=== PATIENT | male | born 1985 | race Caucasian/White ===

== ENCOUNTER 2021-11-10 03:49 | Emergency (ER) | payer MEDICAID ==
--- NOTE | 2021-11-10 03:52 | ED Physician Documentation ---
PD HPI CHEST PAIN - Stated complaint Stated Complaint: CHEST PRESSURE, L ARM NUMB, WEAKNESS - History obtained from History obtained from: Patient - History of Present Illness Timing - onset: Yesterday (11/09/21) Timing - onset during: Rest Timing - details: Abrupt onset, Waxing and waning Pain level now: 2 Quality: Pain Location: Left chest Radiation: Left upper extremity Improved by: Nothing Worsened by: Other (no exacerbating factors) Associated symptoms: Shortness of air. No: Diaphoresis, Nausea, Vomiting, Feeling faint / dizzy, General Weakness, Palpitations, Cough Recently seen: Not recently seen - Additional information Additional information: c/o left-sided chest pain since yesterday afternoon without apparent inciting event nor exacerbating or ameliorating factors. He also notes LUE pain and numbness but he says that has been recurrent and ongoing for past two months. He also notes dyspnea since yesterday. Denies cough, denies fever. He is not COVID vaccinated. He admits to methamphetamine use with most recent use a few hours [employer] Review of Systems Constitutional: denies: Fever, Chills, Sweats Cardiac: reports: Chest pain / pressure. denies: Palpitations, Pedal edema, Calf pain Respiratory: reports: Dyspnea. denies: Cough, Hemoptysis, Wheezing GI: reports: Reviewed and negative Musculoskeletal: reports: Reviewed and negative Neurologic: reports: Reviewed and negative PD PAST MEDICAL HISTORY - Past Medical History Past Medical History: No - Present Medications Home Medications: Ambulatory Orders Medication Instructions Recorded Confirmed No Known Home Medications 11/10/21 11/10/21 - Allergies Allergies/Adverse Reactions: Allergies Allergy/AdvReac Type Severity Reaction Status Date / Time No Known Drug Allergies Allergy Verified 11/10/21 04:02 - Social History Substance Use and Type: Meth PD ED PE NORMAL - Vitals Vital signs reviewed: Yes - General General: Alert and oriented X 3, No acute distress, Well developed/nourished - HEENT HEENT: Other (tacky/pasty mucous membranes) - Cardiac Cardiac: RRR, No murmur, No gallop, No rub - Respiratory Respiratory: No respiratory distress, Clear bilaterally - Abdomen Abdomen: Soft, Non tender - Derm Derm: Normal color, Warm and dry - Extremities Extremities: No edema Results - Vitals Vitals: Vital Signs - 24 hr 11/10/21 11/10/21 11/10/21 03:56 04:36 05:46 Temperature 36.5 C Heart Rate 91 76 76 Respiratory 15 19 14 Rate Blood Pressure 184/117 H 157/88 H 144/84 H O2 Saturation 100 96 98 Oxygen O2 Source Room air - EKG (time done) No standard instances Rate: Rate (enter#) (87) Rhythm: NSR [place]: Normal Intervals: Normal [place] QRS: Normal Ischemia: Normal ST segments, T wave inversion (isolated (lead III)) - Labs Labs: Laboratory Tests 11/10/21 11/10/21 11/10/21 03:15 03:59 03:59 WBC 9.4 RBC 4.92 Hgb 15.7 Hct 45.8 MCV 93.1 MCH 31.9 H MCHC 34.3 RDW 12.6 Plt Count 246 MPV 10.8 Neut # (Auto) 6.5 Lymph # (Auto) 1.9 Adams # (Auto) 0.9 Eos # (Auto) 0.1 Baso # (Auto) 0.0 Absolute Nucleated RBC 0.00 Nucleated RBC % 0.0 Sodium 138 Potassium 3.3 L Chloride 99 L Carbon Dioxide 25 Anion Gap 14.0 H BUN 20 Creatinine 1.0 Estimated GFR (MDRD) 85 L Glucose 104 H Calcium 9.3 Total Bilirubin 0.8 AST 37 ALT 27 Alkaline Phosphatase 88 Troponin I High Sens Total Protein 7.9 Albumin 5.0 Globulin 2.9 Albumin/Globulin Ratio 1.7 Lipase 32 Nasal Adenovirus (PCR) NOT DETECTED Nasal B. parapertussis DNA (PCR) NOT DETECTED Nasal Coronavir 229E PCR NOT DETECTED Nasal Coronavir HKU1 PCR NOT DETECTED Nasal Coronavir NL63 PCR NOT DETECTED Nasal Coronavir OC43 PCR NOT DETECTED Nasal Enterovir/Rhinovir PCR NOT DETECTED Nasal Influenza B PCR NOT DETECTED Nasal Influenza A PCR NOT DETECTED Nasal Parainfluen 1 PCR NOT DETECTED Nasal Parainfluen 2 PCR NOT DETECTED Nasal Parainfluen 3 PCR NOT DETECTED Nasal Parainfluen 4 PCR NOT DETECTED Nasal RSV (PCR) NOT DETECTED Nasal B.pertussis DNA PCR NOT DETECTED Nasal C.pneumoniae (PCR) NOT DETECTED Harish Human Metapneumo PCR NOT DETECTED Nasal M.pneumoniae (PCR) NOT DETECTED Nasal SARS-CoV-2 (PCR) NOT DETECTED 11/10/21 03:59 WBC RBC Hgb Hct MCV MCH MCHC RDW Plt Count MPV Neut # (Auto) Lymph # (Auto) Adams # (Auto) Eos # (Auto) Baso # (Auto) Absolute Nucleated RBC Nucleated RBC % Sodium Potassium Chloride Carbon Dioxide Anion Gap BUN Creatinine Estimated GFR (MDRD) Glucose Calcium Total Bilirubin AST ALT Alkaline Phosphatase Troponin I High Sens 4.6 Total Protein Albumin Globulin Albumin/Globulin Ratio Lipase Nasal Adenovirus (PCR) Nasal B. parapertussis DNA (PCR) Nasal Coronavir 229E PCR Nasal Coronavir HKU1 PCR Nasal Coronavir NL63 PCR Nasal Coronavir OC43 PCR Nasal Enterovir/Rhinovir PCR Nasal Influenza B PCR Nasal Influenza A PCR Nasal Parainfluen 1 PCR Nasal Parainfluen 2 PCR Nasal Parainfluen 3 PCR Nasal Parainfluen 4 PCR Nasal RSV (PCR) Nasal B.pertussis DNA PCR Nasal C.pneumoniae (PCR) Harish Human Metapneumo PCR Nasal M.pneumoniae (PCR) Nasal SARS-CoV-2 (PCR) - Rads (name of study) chest xray Radiology: Prelim report reviewed, See rad report PD MEDICAL DECISION MAKING - ED course Complexity details: reviewed results, re-evaluated patient, considered differential, d/w patient ED course: c/o left chest pain with dyspnea since yesterday afternoon. Questionable whether this is related to LUE pain and numbness, as that has been an ongoing symptom for at least 2 months. He has no significant EKG findings, nor concerning findings on CXR or blood tests (including high sensitivity troponin). Results d/w patient, I recommended return if worse but emphasized the importance of establishing with a local outpatient primary care provider for reevaluation as well as reevaluation of the high blood pressure readings he had early in ED stay (improved without intervention later in ED stay). Departure - Departure Disposition: 01 Home, Self Care Clinical Impression: Chest pain, Hypokalemia Condition: Good Instructions: ED Chest Pain Atypical Unkn Cause, ED Potassium Deficiency Follow-Up: New Manuel MD [Credentialed Staff Provider] - Comments: Your test results tonight have no concerning findings (mildly low potassium is an incidental finding). You should follow up with an outpatient medical practitioner, as further tests might be needed even if you do not have further symptoms. Discharge Date/Time: 11/10/21 05:58
[2021-11-10 04:26] LABS: BASOPHILS % (AUTO) 0.4 %; EOSINOPHILS # (AUTO) 0.1 10^3/uL (0.0-0.7); EOSINOPHILS % (AUTO) 1.3 %; HCT - HEMATOCRIT 45.8 % (42.0-52.0); HGB - HEMOGLOBIN 15.7 g/dL (14.0-18.0); LYMPHOCYTES # (AUTO) 1.9 10^3/uL (1.5-3.5); LYMPHOCYTES % (AUTO) 19.8 %; MEAN CORPUSCULAR HEMOGLOBIN 31.9 pg (27.0-31.0); MEAN CORPUSCULAR HGB CONC 34.3 g/dL (32.0-36.0); MEAN CORPUSCULAR VOLUME 93.1 fL (80.0-94.0); MEAN PLATELET VOLUME 10.8 fL (7.4-11.4); MONOCYTES # (AUTO) 0.9 10^3/uL (0.0-1.0); MONOCYTES % (AUTO) 9.1 %; NEUTROPHILS # (AUTO) 6.5 10^3/uL (1.5-6.6); NEUTROPHILS % (AUTO) 69.2 %; PLT - PLATELET COUNT 246 10^3/uL (130-450); RED BLOOD COUNT 4.92 10^6/uL (4.70-6.10); RED CELL DISTRIBUTION WIDTH 12.6 % (12.0-15.0); WHITE BLOOD COUNT 9.4 x10^3/uL (4.8-10.8)
[2021-11-10 04:43] LABS: ALBUMIN/GLOBULIN RATIO 1.7 (1.0-2.2); BILIRUBIN,TOTAL 0.8 mg/dL (0.2-1.0); CALCIUM 9.3 mg/dL (8.5-10.3); POTASSIUM 3.3 mmol/L (3.5-5.0); TOTAL PROTEIN 7.9 g/dL (6.7-8.2)
[2021-11-10 05:15] LABS: CORONAVIRUS 229E-RESP PCR NOT DETECTED; CORONAVIRUS HKU1-RESP PCR NOT DETECTED; CORONAVIRUS NL63-RESP PCR NOT DETECTED; CORONAVIRUS OC43-RESP PCR NOT DETECTED; HUMAN METAPNEUMOVIRUS NOT DETECTED; INFLUENZA A- RESP PCR PANEL NOT DETECTED; RHINOVIRUS/ENTEROVIRUS NOT DETECTED; SARS-CoV-2 -RESP PCR PANEL NOT DETECTED
[2021-11-10 05:16] LABS: B. PARAPERTUSSIS- RESP PCR PAN NOT DETECTED; B. PERTUSSIS- RESP PCR PANEL NOT DETECTED; C. PNEUMONIAE- RESP PCR PANEL NOT DETECTED; INFLUENZA B - RESP PCR PANEL NOT DETECTED; M. PNEUMONIAE- RESP PCR PANEL NOT DETECTED; PARAINFLUENZA VIRUS 1 NOT DETECTED; PARAINFLUENZA VIRUS 2 NOT DETECTED; PARAINFLUENZA VIRUS 3 NOT DETECTED; PARAINFLUENZA VIRUS 4 NOT DETECTED; RSV- RESP PCR PANEL NOT DETECTED
[2021-11-10] MEDS ORDERED: POTASSIUM CHLORIDE 20 MEQ TABLET PO STA (05:38)
[2021-11-10 05:47] VITALS: BP 144/84
--- NOTE | 2021-11-10 07:41 | XRAY Report ---
PROCEDURE: Chest 1 View X-Ray INDICATIONS: Chest pain TECHNIQUE: One view of the chest was acquired. COMPARISON: None FINDINGS: Surgical changes and devices: None. Lungs and pleura: No pleural effusions or pneumothorax. Lungs are clear. Mediastinum: Mediastinal contours appear normal. Heart size is normal. Bones and chest wall: No suspicious bony lesions. Overlying soft tissues appear unremarkable. IMPRESSION: No acute cardiopulmonary disease process. Reviewed by: Jessy Ledesma MD, PhD on 11/10/2021 7:40 AM [facility] Approved by: Jessy Ledesma MD, PhD on 11/10/2021 7:40 AM [facility] Station ID: [id number]
== END 2021-11-10 05:58 | disposition home or self-care (01) ==
LOC: ED 03:49
DX: R07.9 Chest pain, unspecified (principal); E87.6 Hypokalemia; R20.0 Anesthesia of skin; Z20.822 Contact with and (suspected) exposure to COVID-19
CPT/HCPCS: 0202U; 36415; 71045; 80053; 83690; 84484; 85025; 93005; 99283; 99284; A9270

== ENCOUNTER 2022-04-06 08:00 | Outpatient (CLI) | payer MEDICAID ==
--- NOTE | 2022-04-07 12:44 | XRAY Report ---
PROCEDURE: Finger(s) RT INDICATIONS: R RING FINGER PX TECHNIQUE: AP hand, 3 views of the 4 finger(s) acquired. COMPARISON: None FINDINGS: Bones: No fractures or dislocations. No suspicious bony lesions. Soft tissues: No suspicious soft tissue calcifications. IMPRESSION: No visualized acute fracture or dislocation. However, occult injury cannot be excluded. Recommend evens rt interval imaging follow-up in 7-10 days as clinically indicated for additional evaluation. Reviewed by: Meagan Duran MD on 04/07/2022 12:43 PM PDT Approved by: Meagan Duran MD on 04/07/2022 12:43 PM PDT Station ID: [id number]
== END 2022-04-06 23:59 | disposition home or self-care (01) ==
LOC: DI.N 08:00
PROVIDERS: ATTEND Family Medicine
DX: M79.644 Pain in right finger(s) (principal)

== ENCOUNTER 2022-05-04 08:00 | Outpatient (CLI) | payer MEDICAID ==
--- NOTE | 2022-05-04 17:37 | XRAY Report ---
PROCEDURE: Hand 3 View BILAT INDICATIONS: BILAT HAND PAIN TECHNIQUE: 3 views of the hand(s) acquired. COMPARISON: None FINDINGS: Bones: No fractures or dislocations. No suspicious bony lesions. Soft tissues: No suspicious soft tissue calcifications. IMPRESSION: Unremarkable bilateral hand radiographs Reviewed by: Brent Cummings MD on 05/04/2022 4:35 PM [facility] Approved by: Brent Cummings MD on 05/04/2022 4:35 PM [facility] Station ID: [id number]
== END 2022-05-04 23:59 | disposition home or self-care (01) ==
LOC: DI.WOS 08:00
PROVIDERS: ATTEND Physician Assistant Surgical
DX: M79.644 Pain in right finger(s) (principal); M79.643 Pain in unspecified hand

== ENCOUNTER 2022-08-07 22:54 | Emergency (ER) | payer MEDICAID ==
--- NOTE | 2022-08-08 00:16 | ED Physician Documentation ---
History of Present Illness - Stated complaint Stated Complaint: TOOTH PX - Chief complaint Chief Complaint: Cardiac - History obtained from History obtained from: Patient - History of Present Illness Timing: How many days ago (2-3) Pain level now: 4 - Additonal information Additional information: c/o 2-3 days of dental pain, left upper tooth. He says he was evaluated by a dentist and was told nothing could be done (specifically, possible extraction) until the infection clears and was thus prescribed augmentin. He has had two doses of augmentin thus far. He presents to ED due to following specific precautions given by his dentist, which is to go to ED if he develops neck or chest pain. He says he has had mild, aching left neck discomfort which radiates to left apical chest. He says his neck pain feels more like a sore throat than neck pain per se. Has not had these symptoms before. The neck pain is partially reproduced with palpation. He says the pain intensity was not enough to prompt him to come to ED, but rather that he was just following the precautions given when he saw the dentist. Patient also c/o sore throat Review of Systems Constitutional: denies: Fever Throat: reports: Dental pain / toothache Cardiac: reports: Chest pain / pressure PD PAST MEDICAL HISTORY - Past Surgical History Past Surgical History: No - Present Medications Home Medications: Ambulatory Orders Medication Instructions Recorded Confirmed Amox/Clav 875/125 [Augmentin 1 tablet PO Q12H 08/07/22 08/07/22 875/125 Tab] - Allergies Allergies/Adverse Reactions: Allergies Allergy/AdvReac Type Severity Reaction Status Date / Time No Known Drug Allergies Allergy Verified 08/07/22 23:05 - Social History Does the pt smoke?: Yes Smoking Status: Heavy tobacco smoker Does the pt drink ETOH?: Yes Does the pt have substance abuse?: Yes - Immunizations Immunizations are current?: No Immunizations: Other immun not current PD ED PE NORMAL - Vitals Vital signs reviewed: Yes - General General: Alert and oriented X 3, No acute distress, Well developed/nourished - HEENT HEENT: Moist mucous membranes, Other (mild tenderness to percussion of left maxillary second molar) - Neck Neck: Supple, no meningeal sign, No adenopathy PD ED PE EXPANDED - HEENT HEENT: Pharyngeal erythema (trace ), Other (no intraoral swelling or fluctuance including posterior o/p as well as gingiva surrounding the affected tooth. no neck swelling, TTP, erythema) Results - Vitals Vitals: Oxygen O2 Source Room air - EKG (time done) No standard instances Rate: Rate (enter#) (89) Rhythm: NSR [place]: Normal Intervals: Normal [place] QRS: Normal Ischemia: Normal ST segments Computer interpretation: Disagree with computer (No ST changes including no ST elevations) PD MEDICAL DECISION MAKING - ED course Complexity details: considered differential, d/w patient ED course: recently seen by dentist for dental infection and comes to ED due to sore throat, neck pain, chest discomfort. His EKG is unremarkable. His neck pain is more of a sore throat c/o than surface neck pain. There is no evidence of spreading infection (such as Cristian's angina or other soft tissue infection of head/neck). He is reassured that there does not appear to be an emergent process at this time and that he should continue the antibiotic as prescribed. Departure - Departure Disposition: 01 Home, Self Care Clinical Impression: Tooth pain Condition: Good Instructions: ED Tooth Pain Discharge Date/Time: 08/08/22 00:50
[2022-08-08 01:25] VITALS: BP 130/70
== END 2022-08-08 00:50 | disposition home or self-care (01) ==
LOC: ED 22:54
DX: K08.89 Other specified disorders of teeth and supporting structures (principal); Z72.0 Tobacco use
CPT/HCPCS: 93005; 99282; 99283

== ENCOUNTER 2023-04-24 08:00 | Outpatient (CLI) | payer MEDICAID, OTHER ==
[2023-04-24 14:36] LABS: ALBUMIN 4.2 g/dL (3.2-5.5); ALBUMIN/GLOBULIN RATIO 1.2 (1.0-2.2); BILIRUBIN,TOTAL 0.5 mg/dL (0.2-1.0); CALCIUM 9.4 mg/dL (8.5-10.3); CREATININE 0.9 mg/dL (0.6-1.2); POTASSIUM 4.4 mmol/L (3.5-5.0); TOTAL PROTEIN 7.7 g/dL (6.7-8.2)
[2023-04-24 14:37] LABS: BASOPHILS % (AUTO) 0.5 %; EOSINOPHILS # (AUTO) 0.1 10^3/uL (0.0-0.7); EOSINOPHILS % (AUTO) 1.6 %; HCT - HEMATOCRIT 47.7 % (42.0-52.0); LYMPHOCYTES # (AUTO) 1.5 10^3/uL (1.5-3.5); MEAN CORPUSCULAR HEMOGLOBIN 31.1 pg (27.0-31.0); MEAN CORPUSCULAR HGB CONC 33.5 g/dL (32.0-36.0); MEAN CORPUSCULAR VOLUME 92.8 fL (80.0-94.0); MEAN PLATELET VOLUME 10.1 fL (7.4-11.4); MONOCYTES # (AUTO) 0.4 10^3/uL (0.0-1.0); NEUTROPHILS # (AUTO) 4.2 10^3/uL (1.5-6.6); NEUTROPHILS % (AUTO) 66.6 %; PLT - PLATELET COUNT 289 10^3/uL (130-450); RED BLOOD COUNT 5.14 10^6/uL (4.70-6.10); RED CELL DISTRIBUTION WIDTH 12.5 % (12.0-15.0); WHITE BLOOD COUNT 6.3 x10^3/uL (4.8-10.8)
[2023-04-24 14:42] LABS: BILIRUBIN,URINE NEGATIVE (NEGATIVE); GLUCOSE, URINE (UA) NEGATIVE (NEGATIVE); KETONES,URINE (UA) NEGATIVE (NEGATIVE); LEUKOCYTE ESTERASE, URINE NEGATIVE (NEGATIVE); NITRITE,URINE NEGATIVE (NEGATIVE); OCCULT BLOOD,URINE NEGATIVE (NEGATIVE); PH,URINE 5.5 PH (5.0-7.5); PROTEIN,URINE NEGATIVE (NEGATIVE); UROBILINOGEN,URINE 0.2 (NORMAL) E.U./dL (NORMAL)
[2023-04-24 14:57] LABS: CLARITY,URINE CLEAR (CLEAR)
== END 2023-04-24 23:59 | disposition home or self-care (01) ==
LOC: LAB.R 08:00
PROVIDERS: ATTEND Registered Nurse
DX: R68.89 Other general symptoms and signs (principal); R74.8 Abnormal levels of other serum enzymes; R82.998 Other abnormal findings in urine; R94.5 Abnormal results of liver function studies; R79.9 Abnormal finding of blood chemistry, unspecified
CPT/HCPCS: 80053; 81001; 81003; 82150; 83690; 85025; 87086

== ENCOUNTER 2024-01-27 02:31 | Emergency (ER) | payer MEDICAID, OTHER ==
[2024-01-27] MEDS: lidocaine 1% 20 ML MDV SUBQ ONE (03:40)
--- NOTE | 2024-01-27 03:47 | ED Physician Documentation ---
History of Present Illness - Stated complaint Stated Complaint: L HAND FINGER LX - Chief complaint Chief Complaint: Laceration - History obtained from History obtained from: Patient - Additonal information Additional information: 38yM presents s/p avulsed tissue to L 2nd finger after accidentally cutting with knife today. moving finger without difficulty. denies other injury. R hand dominant. PD PAST MEDICAL HISTORY - Past Medical History Past Medical History: No - Past Surgical History Past Surgical History: Yes Ortho: Other - Present Medications Home Medications: Ambulatory Orders Medication Instructions Recorded Confirmed No Known Home Medications 01/27/24 01/27/24 - Allergies Allergies/Adverse Reactions: Allergies Allergy/AdvReac Type Severity Reaction Status Date / Time No Known Drug Allergies Allergy Verified 01/27/24 02:52 - Social History Does the pt smoke?: Yes Smoking Status: Current every day smoker Does the pt drink ETOH?: Yes Does the pt have substance abuse?: Yes - Immunizations Immunizations are current?: No Immunizations: TDAP >10years/unknown, Other immun not current - POLST Patient has POLST: No PD ED PE NORMAL - Vitals Vital signs reviewed: Yes - General General: Alert and oriented X 3, No acute distress, Well developed/nourished - HEENT HEENT: Atraumatic, PERRL, EOMI - Neck Neck: Supple, no meningeal sign - Derm Derm: Normal color, Warm and dry, Other (1cm shallow avulsion to skin overlying L MCP joint. normal rom of finger. no tendon or bone involvement. no foreign body) Results - Vitals Vitals: Vital Signs - 24 hr 01/27/24 02:40 Temperature 37.0 C Heart Rate 99 Respiratory 18 Rate Blood Pressure 157/73 H O2 Saturation 98 Oxygen O2 Source Room air PD Medical Decision Making - ED course ED course: 38yM Presents with avulsed tissue to left index finger, shallow and without evidence of bone or tendon involvement. 3 cc of lidocaine without epinephrine (1%) were administered to the base of the finger and patient was subsequently able to thoroughly irrigate the wound. Bacitracin antibiotic ointment was applied and a nonstick dressing. Advised patient to keep the area clean and dry for 24 to 48 hours and then change dressing daily thereafter, keeping the area clean and monitoring for signs of infection. Return precautions given. Departure - Departure Disposition: 01 Home, Self Care Clinical Impression: Avulsion, skin Condition: Stable Instructions: ED Avulsion Dermal Comments: You were seen in the emergency department for Skin avulsion. Monitor for signs of infection and keep the area clean and dry. Please follow-up with your primary care provider and return to the emergency department if you have any new or worsening symptoms or other concerns.
[2024-01-27] MEDS: TETANUS/DIPHTHERIA/PERTUSSIS 0.5 ML SYRINGE IM ONE (03:54)
[2024-01-27] MEDS: BACITRACIN ZINC OINT 1 PACKET TOP STA (03:55)
[2024-01-27] MEDS ORDERED: lidocaine 1% 20 ML MDV ONE (04:07)
[2024-01-27 04:53] VITALS: BP 144/70; O2SAT 100
== END 2024-01-27 04:50 | disposition home or self-care (01) ==
LOC: ED 02:31
DX: S61.201A Unspecified open wound of left index finger without damage to nail, initial encounter (principal); W26.0XXA Contact with knife, initial encounter; F17.200 Nicotine dependence, unspecified, uncomplicated; Z23 Encounter for immunization
CPT/HCPCS: 90471; 99283